=== PATIENT | female | born 1945 | race Caucasian/White ===

== ENCOUNTER 2016-04-22 01:50 | Emergency (ER) | payer OTHER ==
--- NOTE | 2016-04-22 07:23 | DIAGNOSTIC IMAGING REPORT ---
PROCEDURE: CT HEAD WITHOUT CONTRAST INDICATION: Occipital headache, initial encounter TECHNIQUE: Noncontrast axial images with sagittal and coronal reformations. COMPARISON: None. FINDINGS: Mild cortical atrophy. Ventricular system and brain parenchyma are normal. No evidence of acute intracranial process. Minor ethmoid sinus disease. Mastoids are clear. IMPRESSION: 1. Negative non-enhanced head CT. 2. Minor ethmoid sinus disease 3. Preliminary results submitted by Dr. Diallo, [facility] radiology.
--- NOTE | 2016-04-22 07:23 | DIAGNOSTIC IMAGING REPORT ---
PROCEDURE: CT HEAD WITHOUT CONTRAST INDICATION: Occipital headache, initial encounter TECHNIQUE: Noncontrast axial images with sagittal and coronal reformations. COMPARISON: None. FINDINGS: Mild cortical atrophy. Ventricular system and brain parenchyma are normal. No evidence of acute intracranial process. Minor ethmoid sinus disease. Mastoids are clear. IMPRESSION: 1. Negative non-enhanced head CT. 2. Minor ethmoid sinus disease 3. Preliminary results submitted by Dr. Diallo, [facility] radiology.
--- NOTE | 2016-04-22 10:32 | DIAGNOSTIC IMAGING REPORT ---
PROCEDURE: XR LUMBAR SPINAL PUNCTURE INDICATION: HEADACHE TECHNIQUE: C-arm fluoroscopy provided to Dr. Pichardo for lumbar spinal puncture Fluoroscopy time 1.5-minute 43 8.06 mGy). COMPARISON: None. FINDINGS: AP and lateral C-arm views. There is a needle tip overlying the posterior spinal canal at the L4 level IMPRESSION: 1. C-arm fluoroscopy for lumbar spinal puncture (performed by Dr. Pichardo
--- NOTE | 2016-04-22 11:35 | ED ORDER SUMMARY ---
..... Patient: KIRAN SMITH OrderSheet [facility] VisitID: [id number] [place] [address] 71y, F Registration Date/Time: 04/22/2016 ORDER SHEET Weight: 74.3 kg (stated) Allergies: Oxycodone GENERAL ORDERS: CT Head wo Cont Urgent (02:28 04/22/2016 Doug PADILLA) (Ack 2:30 AMcQuoid ER Tech1) (3:21 Mckenzie) CBC w Diff Urgent (06:23 04/22/2016 DBeyer R.N. verbal order read back to Doug PADILLA) (6:27 AMcQuoid ER Tech1) UA-Culture if indicated Urgent (06:23 04/22/2016 Mildred R.N. verbal order read back to Doug PADILLA) (6:27 AMcQuoid ER Tech1) Urine Drug Screen Urgent (07:58 04/22/2016 Doug PADILLA) (Ack 8:08 KHoerner) (8:08 KHoerner) Lumbar Spinal Puncture (No) Urgent (08:39 04/22/2016 Doug PADILLA) (Ack 8:41 KHoerner) (10:09 MWinterer R.N.) CSF, Cell Count Urgent (09:56 04/22/2016 Asael Koenig) (Ack 9:57 SUSANAoerner) (10:09 MWinterer R.N.) CSF, Culture Urgent (09:56 04/22/2016 Asael Koenig) (Ack 9:57 SUSANAoerner) (10:09 MWinterer R.N.) CSF, Glucose Urgent (09:56 04/22/2016 Asael Koenig) (Ack 9:57 SUSANAoerner) (10:09 MWinterer R.N.) CSF, Protein Urgent (09:56 04/22/2016 Asael Koenig) (Ack 9:58 SUSANAoerner) (10:09 MWinterer R.N.) MEDICATION ORDERS: IV FLUIDS: IV NS : initial bolus none -, then 250 mL/hr for 4h (NOW); Routine (02:27 04/22/2016 Doug PADILLA) (3:07 DBeyer R.N.) Dilaudid IV 0.5 mg (NOW) (02:28 04/22/2016 Doug PADILLA) (3:08 DBeyer R.N.) Ativan IV 0.5 mg (NOW) (02:28 04/22/2016 Doug PADILLA) (3:09 DBeyer R.N.) Zofran IV 4 mg (NOW) (02:28 04/22/2016 Doug PADILLA) (3:08 DBeyer R.N.) Dilaudid IV 0.5 mg (NOW) (04:49 04/22/2016 Doug PADILLA) (4:55 DBeyer R.N.) Zofran IV 4 mg (NOW) (05:13 04/22/2016 Doug PADILLA) (Ack 5:13 RCollier R.N.) (5:16 DBeyer R.N.) ORDER SHEET NOTES: [Electronically signed by Jessenia Ramirez R.N. (11:54 04/22/2016)] [Electronically signed by Jordon Bone Dr. (14:08 04/27/2016)] [Electronically locked/signed by Jessenia Ramirez R.N. (11:54 04/22/2016)]
--- NOTE | 2016-04-22 11:35 | ED CLINICAL REPORT ---
Clinical Report - Physicians/Mid Levels [facility] [address] [place] [address] 04/22/2016 1:56 Patient: KIRAN SMITH Time Seen: 02:25 Apr 22 2016. Arrived- By private vehicle. Historian- patient. HISTORY OF PRESENT ILLNESS Chief Complaint: HEADACHE. Worst JOHNSON she has ever had. Is still present. 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 Each JOHNSON lasts an hour or two. Seems to have come on with her cough and URI. HAs not been able to get tonight's JOHNSON to go away and now has vomiting. Onset during light activity. It is described as "pain". Located in the occipital region. At its maximum, severity described as moderate. When seen in the E.D., severity described as moderate. Modifying factors: (Cough makes it worse.). The patient has had nausea and vomiting. No preceding symptoms, blurred vision, photophobia, numbness or weakness. REVIEW OF SYSTEMS No fever, muscle aches, sinus pressure, ear pain or sore throat. No head injury, chest pain, difficulty breathing, cough or abdominal pain. No diarrhea, pain with urination, skin rash or enlarged lymph nodes. All systems otherwise negative, except as recorded above. PAST HISTORY Diabetes Mellitus. . ADDITIONAL SURGERIES: . Knee Surgery. Medications: MetFORMIN HCl Oral. Allergies: Oxycodone. ADDITIONAL NOTES The nursing notes have been reviewed. PHYSICAL EXAM Vital Signs: 04/22/2016 01:58 BP: 155/84. HR: 84. RR: 18. O2 saturation: 100%. Temp: 98.1 F. Appearance: Alert. Appears to be in pain. Patient in moderate distress. Eyes: Photophobia present. Pupils equal, round and reactive to light. ENT: Ears normal. Nose normal. Pharynx normal. Neck: Normal inspection. Neck supple. No meningeal signs. CVS: Normal heart rate and rhythm. Heart sounds normal. Pulses normal. Respiratory: No respiratory distress. Breath sounds normal. Abdomen: Soft and nontender. Back: Normal inspection. Skin: Skin warm. Normal skin color. No rash. Extremities: Extremities exhibit normal ROM. No lower extremity edema. Neuro: Oriented X 3. Alert. Mood/affect normal. Speech normal. Cranial nerves normal (as tested). No cerebellar findings. No motor deficit. No sensory deficit. Reflexes normal. LABS, X-RAYS, AND EKG CT Head: No acute disease. Laboratory Tests: UA-Culture if indicated: (AMANDA: 04/22/2016 04:42) ( [facility] 04/22/2016 06:39) Final results Test Result Flag Units (Reference) URINE COLOR YELLOW URINE APPEARANCE SLIGHTLY HAZY URINE GLUCOSE TRACE (NEGATIVE) URINE BILIRUBIN NEGATIVE (NEGATIVE) URINE KETONE 2+ (NEGATIVE) URINE SPECIFIC GRAVITY >= 1.030 (1.010-1.030) URINE PH 5.5 (5.0-8.0) URINE PROTEIN NEGATIVE (NEGATIVE) URINE UROBILINOGEN 0.2 EU/dL (0.2-1.0) URINE NITRITE NEGATIVE (NEGATIVE) URINE BLOOD TRACE-INTACT (NEGATIVE) URINE LEUK ESTERASE NEGATIVE (NEGATIVE) URINE RBC 0-1 rbc/hpf (0-1) URINE WBC RARE wbc/hpf (0-1) URINE EPITHELIAL CELLS RARE EPI/hpf (0-5) URINE BACTERIA NONE SEEN (NONE SEEN) URINE COMMENT CULT NOT INDICATED CALCIUM OXALATE CRYSTALS: 15-25/HPFURINE CULTURES ARE SET-UP BASED ON THE FOLLOWING CRITERIA:POSITIVE NITRITEPOSITIVE LEUKOCYTE ESTERASEGREATER THAN 10 WHITE BLOOD CELLSMODERATE (2+) OR GREATER BACTERIA CBC w Diff: (AMANDA: 04/22/2016 03:01) ( [facility] 04/22/2016 06:34) Final results Test Result Flag Units (Reference) WHITE BLOOD COUNT 10.2 K/uL (4.5-11.5) RED BLOOD COUNT 4.42 M/uL (4.00-5.20) HEMOGLOBIN 13.1 gm/dL (12.0-16.0) HEMATOCRIT 39.7 % (36.0-46.0) MEAN CELL VOLUME 90 fL (80-100) MEAN CORPUSCULAR HGB 30 pg (26-34) MEAN CORPUSCULAR HGB CONC 33 g/dL (31-37) RED CELL DISTRIBUTION WIDTH 12.4 % (11.6-14.8) PLATELET COUNT 406 H K/uL (150-400) NEUTROPHIL % 81.8 H % (50-75) LYMPH % 12.3 L % (25-40) MONO % 5.5 % (3-14) EOSINOPHIL % 0 % (0-4) BASOPHIL % 0.4 % (0-2) Urine Drug Screen: (AMANDA: 04/22/2016 04:42) ( [facility] 04/22/2016 09:36) Final results Test Result Flag Units (Reference) AMPHETAMINE/METHAMPHETAMINE NEGATIVE (NEGATIVE) BARBITURATE NEGATIVE (NEGATIVE) BENZODIAZEPINE NEGATIVE (NEGATIVE) CANNABINOID NEGATIVE (NEGATIVE) COCAINE NEGATIVE (NEGATIVE) ECSTASY NEGATIVE (NEGATIVE) METHADONE NEGATIVE (NEGATIVE) OPIATE POSITIVE H (NEGATIVE) The urine drug screen is a qualitative screening test fordrug overdose and abuse. All screen results should beconsidered as presumptive.Drugs screened for are as follows:BenzodiazepinesCocaineAmphetamines/MetamphetaminesTHC (Tetrahydrocannabinol)OpiatesBarbituratesEcstasyMethadonePositive results are unconfirmed. For confirmation, notifythe lab for the specimen to be sent to the reference lab.All confirmations must be performed by a differentmethodology.The ingestion of natural herbal and plant productscontaining Ephedra/Ephedra metabolites can produce in urineone or more substances capable of cross reacting withamphetamine/methamphetamine immunoassays. These testsprovide a preliminary result only. A more specificalternative chemical method must be used to obtain aconfirmed analytical result. CSF, Cell Count: (AMANDA: 04/22/2016 09:50) ( [facility] 04/22/2016 10:57) Final results Test Result Flag Units (Reference) CSF GLUCOSE 124 H mg/dL (40-75) CSF PROTEIN 56.2 H mg/dL (15-45) CSF TOTAL VOLUME 9.0 CC TUBE # 3 COLOR COLORLESS APPEARANCE CLEAR CSF WBC 4.0 WBC/mm3 (0-5) CSF RBC 25 H RBC/mm3 (0-5) CSF, Culture: (AMANDA: 04/22/2016 09:50) ( MsgRcvd 04/22/2016 11:01) IP Test Result Flag Units (Reference) GRAM STAIN, CSF DATE: 04/22/16 NO CELLS/NO BACTERIA: NO CELLS OR BACTERIA SEEN . PROGRESS AND PROCEDURES Lumbar Puncture: Lumbar puncture performed by ED physician. Risks, benefits and alternatives were discussed. Consent was obtained from patient. Sterile technique was used. Local lidocaine anesthesia was used. The area was cleansed with Betadine. Patient was in sitting position. A 22g needle was used. (3 attempts and could not get past bone to interspace. Pt with some scoliosis. Will need to get radiology assistance.). Course of Care: Attempt at LP failed and will need radiologist to help with procedure. Pt stable and no progression of symptoms. [address] Barrera who will be in to do the LP. He is coming from [place]. LP performed. Clear per IR. Labs ordered. he patient is a pleasant 71-year-old female presenting for evaluation of headache. I performed my own independent examination and history. Agree with the assessment and plan. At this point in time following up with the patient's lumbar puncture for evaluation of subarachnoid hemorrhage and is pending at this time. Unfortunately we're unable to obtain the lumbar puncture done in the emergency department by Dr. Pichardo. Patient was evaluated and neurovascularly intact. No focal neurological deficits noted on examination. Patient continues to be nontoxic and with improved pain control. Workup was noted to be unremarkable. Thelumbar puncture does not show any signs of subarachnoid hemorrhage. There is a small amount of blood noted on CSF however even case reportsshow patientto have at least 100red blood cells on spinal tap. Because of the low red blood cells, do not fill patient has subarachnoid hemorrhage. Fluid is also clear. No signs of xanthochromia. Patient was reevaluated and found to be significantly improved with her pain. I discussion with patient in regards to post lumbar puncture headache. Pain medication provided for home use. Discussed with patient her workup here in the emergency department including diagnosis, home care, follow-up, and return precautions. All questions have been answered. The patient expressed understanding of these instructions and was agreeable to them. Patient/family counseled. Disposition: Discharged. Condition: good. CLINICAL IMPRESSION Acute headache (posterior occipital). 04/22/2016 10:10 BP: 121/75. HR: 88. RR: 16. O2 saturation: 96%. Moderate nausea with vomiting (acute). Blood pressure normal. Oxygen saturation normal. INSTRUCTIONS Warnings: GENERAL WARNINGS: Return or contact your physician immediately if your condition worsens or changes unexpectedly, if not improving as expected, or if other problems arise. SPECIFICALLY, return if you develop fever, vomiting, numbness, weakness, difficulty thinking, visual disturbances, fainting or extreme fatigue. Your Current Medications: CONTINUE TAKING THE FOLLOWING MEDICATIONS: MetFORMIN HCl Oral. Prescription Medications: Zofran (orally disintegrating tablets) 4 mg: take 1 orally every 8 hours as needed for nausea and vomiting. Dispense ten (10). No refill. Substitution is permissible. [place] 5 mg / 325 mg tablets: take 1 orally every 6 hours as needed for pain. Dispense ten (10). No refill. Substitution is permissible. Follow-up: Return to the emergency department as needed. Follow up with your doctor in three days. Reason for referral: recheck today's concerns. Summary of care provided to patient via paper. Screening today revealed the patient's blood pressure to be in the normal range. The patient should follow up with a primary care provider for blood pressure management. Understanding of the discharge instructions verbalized by patient. (Electronically signed by Jordon Bone Dr. 04/27/2016 14:08)
--- NOTE | 2016-04-22 11:35 | ED NURSING NOTES ---
Clinical Report - Nurses [facility] [address] [place] [address] 04/22/2016 1:56 [id number] Triage time 01:58 Apr 22 2016. Acuity: LEVEL 4. Chief Complaint: COUGH. --02:00 Arnoldo Horton R.N. 01:58 04/22/16. BP: 155/84. HR: 84. RR: 18. O2 saturation: 100%. Temp: 98.1 F. Pain level now 08/18. --02:00 Arnoldo Horton R.N. Weight: 74.3 kg stated. Height/Length: 61 inches Per Patient. BMI: 31. --01:59 Arnoldo Horton R.N. Medications MetFORMIN HCl Oral. --01:59 Arnoldo Horton R.N. Allergies Oxycodone. --01:59 Arnoldo Horton R.N. History Arrived by private vehicle. ( Pt states she started zithromax since thursday and started prednisone yesterday. Pt has JOHNSON today). SOCIAL HX: Never smoker. No alcohol use or drug use. --02:00 Arnoldo Horton R.N. PROBLEMS: Diabetes Mellitus. --02:00 Arnoldo Horton R.N. ADDITIONAL SURGERIES: . Knee Surgery. --01:59 Arnoldo Horton R.N. Interventions ID band on patient. --02:00 Arnoldo Horton R.N. PHYSICAL ASSESSMENT GENERAL / NEURO / PSYCH: Alert. Oriented X 4. Appears in no acute distress. HEENT: Pupils equal, round and reactive to light. RESPIRATORY: The patient can speak in full sentences. Breath sounds within normal limits. CVS: Capillary refill less than 2 seconds. SKIN: Skin is warm and dry. --02:01 Arnoldo Horton R.N. NURSING PROGRESS NOTES Pulse oximeter placed on patient. Patient gowned. Call light placed in reach. Side rails up x 1. --02:01 Arnoldo Horton R.N. 02:43 04/22/2016 Two (2) unsuccessful IV access attempts including the right antecubital space and forearm. Applied bandage and manual pressure. --02:43 Christie Shah R.N. 03:04/22/2016 Site #1 started via IV in the left antecubital space with an 20g angiocath; four attempts. Blood drawn: rainbow set. Labeled in the presence of the patient and sent to the lab. --03: Arnoldo Horton R.N. 03:04/22/2016 Started bag #1 1000 mL IV Fluids IV NS (Saline); at 250 mL/hr over 4 hour(s) via site #1. Allergies verified and confirmed 5 rights. IV patency established. IV site checked: no pain, redness, or swelling. IV flushed thoroughly pre- and post-medication administration. Completed per protocol. --03: Arnoldo Horton R.N. 03:04/22/2016 Dilaudid (HYDROmorphone HCl PF) IVP 0.5 mg given over 2 minute(s) via site #1. Allergies verified, confirmed 5 rights and sedative warning given to the patient. IV patency established. IV site checked: no pain, redness, or swelling. IV flushed thoroughly pre- and post-medication administration. IVP given by RN. --03:08 Arnoldo Horton R.N. 03:04/22/2016 Zofran (Ondansetron HCl) IVP 4 mg given over 2 minute(s) via site #1. Allergies verified and confirmed 5 rights. IV patency established. IV site checked: no pain, redness, or swelling. IV flushed thoroughly pre- and post-medication administration. IVP given by RN. --03:08 Arnoldo Horton R.N. 03:04/22/2016 Ativan (LORazepam) IVP 0.5 mg given over 2 minute(s) via site #1. Allergies verified, confirmed 5 rights and sedative warning given to the patient. IV patency established. IV site checked: no pain, redness, or swelling. IV flushed thoroughly pre- and post-medication administration. IVP given by RN. --03:09 Arnoldo Horton R.N. 03:13. Patient transported to [place] by stretcher with tech. --03:16 McQuoid, Estrella, ER Tech1 03:23 04/22/16. O2 saturation: 97%. --03:23 Arnoldo Horton R.N. 04:13 04/22/16. BP: 126/73. HR: 76. O2 saturation: 99%. --04:14 Arnoldo Horton R.N. 04:55 04/22/2016 Dilaudid (HYDROmorphone HCl PF) IVP 0.5 mg given over 2 minute(s) via site #1. Allergies verified, confirmed 5 rights and sedative warning given to the patient. IV patency established. IV site checked: no pain, redness, or swelling. IV flushed thoroughly pre- and post-medication administration. IVP given by RN. --04:55 Arnoldo Horton R.N. 05:16 04/22/2016 Zofran (Ondansetron HCl) IVP 4 mg given over 2 minute(s) via site #1. Allergies verified and confirmed 5 rights. IV patency established. IV site checked: no pain, redness, or swelling. IV flushed thoroughly pre- and post-medication administration. IVP given by RN. --05:16 Arnoldo Horton R.N. 05:21. Oxygen administered by nasal cannula at 2 liters (due to multiple episodes of O2 reading in the low 80's, O2 improves to 100% with oxygen.). --06:05 Christie Shah R.N. 06:06 04/22/16. BP: 132/84. HR: 88. RR: 16. O2 saturation: 100%. --06:07 Arnoldo Horton R.N. ( LP unsuccessful). --06:07 Arnoldo Horton R.N. 06:56 04/22/2016 IV Fluids IV NS Discontinued: bag #1 infused. Total amount infused: 1000 mL. --06:56 Arnoldo Horton R.N. ( Pt taken off of NC 02 pt verbalized understanding of follow up care.). --06:57 Arnoldo Horton R.N. 06:56 04/22/16. BP: 124/64. HR: 89. RR: 16. O2 saturation: 94%. --06:57 Arnoldo Horton R.N. Care transferred and report received (BREEZY Mclaughlin). --07:09 Jessenia Ramirez R.N. 07:44 04/22/16. BP: 120/66. HR: 87. RR: 16. O2 saturation: 94% on room air. --07:45 Jessenia Ramirez R.N. 07:45 04/22/16. The patient is sleeping. --07:45 Jessenia Ramirez R.N. 08:38 04/22/16. BP: 118/59. HR: 81. RR: 18. O2 saturation: 95% on nasal cannula at 2 liters/minute. --08:39 Jessenia Ramirez R.N. Patient transported to radiology by stretcher with tech. (for LP). --09:15 Magi Daly R.N. ( walked cultures to lab.). --10:02 Nannette Mora, GLOYR Tech1 10:10 04/22/16. Patient returned from radiology by stretcher with tech. --10:10 Jessenia Ramirez R.N. 10:10 04/22/16. BP: 121/75. HR: 88. RR: 16. O2 saturation: 96% on room air. --10:11 Jessenia Ramirez R.N. DISPOSITION / DISCHARGE Departure time: 11:45 Apr 22 2016. Condition at departure: improved and stable. No learning barriers present. Discharge instructions provided and reviewed with the patient. Reviewed medication(s) side effects, precautions and dosing information. Prescription(s) given to the patient. Patient verbalized understanding. Written instructions provided in Serbian. The patient was discharged by the physician. She was discharged home and accompanied by spouse. She left the Emergency Department ambulatory and via private vehicle. Spouse driving. --11:53 Jessenia Ramirez R.N. 11:51 04/22/16. BP: 126/88. HR: 89. RR: 16. O2 saturation: 100% on room air. Temp: 98.1 F (oral). Pain level now: 05/19. --11:53 Jessenia Ramirez R.N. 11:43 04/22/2016 Site #1 removed upon discharge. Catheter intact. Manual pressure and bandage applied. --11:53 Jessenia Ramirez R.N. Locked/Released at 04/22/2016 11:54 by Jessenia Ramirez R.N.
--- NOTE | 2016-04-22 11:35 | ED ORDER SUMMARY ---
..... Patient: KIRAN SMITH OrderSheet [facility] VisitID: [id number] [place] [address] 71y, F Registration Date/Time: 04/22/2016 ORDER SHEET Weight: 74.3 kg (stated) Allergies: Oxycodone GENERAL ORDERS: CT Head wo Cont Urgent (02:28 04/22/2016 Doug PADILLA) (Ack 2:30 AMcQuoid ER Tech1) (3:21 Mckenzie) CBC w Diff Urgent (06:23 04/22/2016 DBeyer R.N. verbal order read back to Doug PADILLA) (6:27 AMcQuoid ER Tech1) UA-Culture if indicated Urgent (06:23 04/22/2016 Mildred R.N. verbal order read back to Doug PADILLA) (6:27 AMcQuoid ER Tech1) Urine Drug Screen Urgent (07:58 04/22/2016 Doug PADILLA) (Ack 8:08 KHoerner) (8:08 KHoerner) Lumbar Spinal Puncture (No) Urgent (08:39 04/22/2016 Doug PADILLA) (Ack 8:41 KHoerner) (10:09 MWinterer R.N.) CSF, Cell Count Urgent (09:56 04/22/2016 Asael Koenig) (Ack 9:57 SUSANAoerner) (10:09 MWinterer R.N.) CSF, Culture Urgent (09:56 04/22/2016 Asael Koenig) (Ack 9:57 SUSANAoerner) (10:09 MWinterer R.N.) CSF, Glucose Urgent (09:56 04/22/2016 Asael Koenig) (Ack 9:57 SUSANAoerner) (10:09 MWinterer R.N.) CSF, Protein Urgent (09:56 04/22/2016 Asael Koenig) (Ack 9:58 SUSANAoerner) (10:09 MWinterer R.N.) MEDICATION ORDERS: IV FLUIDS: IV NS : initial bolus none -, then 250 mL/hr for 4h (NOW); Routine (02:27 04/22/2016 Doug PADILLA) (3:07 DBeyer R.N.) Dilaudid IV 0.5 mg (NOW) (02:28 04/22/2016 Doug PADILLA) (3:08 DBeyer R.N.) Ativan IV 0.5 mg (NOW) (02:28 04/22/2016 Doug PADILLA) (3:09 DBeyer R.N.) Zofran IV 4 mg (NOW) (02:28 04/22/2016 Doug PADILLA) (3:08 DBeyer R.N.) Dilaudid IV 0.5 mg (NOW) (04:49 04/22/2016 Doug PADILLA) (4:55 DBeyer R.N.) Zofran IV 4 mg (NOW) (05:13 04/22/2016 Doug PADILLA) (Ack 5:13 RCollier R.N.) (5:16 DBeyer R.N.) ORDER SHEET NOTES: [Electronically signed by Jessenia Ramirez R.N. (11:54 04/22/2016)] [Electronically signed by Jordon Bone Dr. (14:08 04/27/2016)] [Electronically locked/signed by Jessenia Ramirez R.N. (11:54 04/22/2016)]
--- NOTE | 2016-04-27 14:08 | ED MAR SUMMARY ---
..... Medication Administration Record [facility] [address] [place] [address] Patient: KIRAN SMITH Visit ID: [id number] 71y, F Weight: 74.3 kg Height/Length: 61 in BMI: 31 ALLERGIES: Oxycodone Start 03:07 04/22/2016 Arnoldo Horton R.N., Stop 06:56 04/22/2016 Arnoldo Hortno R.N. Medication Administered: IV NS (SALINE), Dose: IV Fluids over 4 hour(s), Rate: 250 mL/hr, Dispensed: 1000 mL bag, Site: #1 left AC. Medication Ordered: IV NS : initial bolus none -, then 250 mL/hr for 4h (NOW); Routine. Given 03:08 04/22/2016 Arnoldo Horton R.N. Medication Administered: DILAUDID [IVP] (HYDROMORPHONE HCL PF), Dose: 0.5 mg IVP over 2 minute(s), Site: #1 left AC. Medication Ordered: Dilaudid IV 0.5 mg (NOW). Given 03:08 04/22/2016 Arnoldo Horton R.N. Medication Administered: ZOFRAN [IVP] (ONDANSETRON HCL), Dose: 4 mg IVP over 2 minute(s), Site: #1 left AC. Medication Ordered: Zofran IV 4 mg (NOW). Given 03:09 04/22/2016 Arnoldo Horton R.N. Medication Administered: ATIVAN [IVP] (LORAZEPAM), Dose: 0.5 mg IVP over 2 minute(s), Site: #1 left AC. Medication Ordered: Ativan IV 0.5 mg (NOW). Given 04:55 04/22/2016 Arnoldo Horton R.N. Medication Administered: DILAUDID [IVP] (HYDROMORPHONE HCL PF), Dose: 0.5 mg IVP over 2 minute(s), Site: #1 left AC. Medication Ordered: Dilaudid IV 0.5 mg (NOW). Given 05:16 04/22/2016 Arnoldo Horton R.N. Medication Administered: ZOFRAN [IVP] (ONDANSETRON HCL), Dose: 4 mg IVP over 2 minute(s), Site: #1 left AC. Medication Ordered: Zofran IV 4 mg (NOW).
--- NOTE | 2016-04-27 14:08 | ED DISCHARGE INSTRUCTIONS ---
Patient: KIRAN SMITH General Instructions [facility] VisitID: [id number] [place] [address] 71y, F Registration Date/Time: 04/22/2016 Acute headache (posterior occipital). 04/22/2016 10:10 BP: 121/75. HR: 88. RR: 16. O2 saturation: 96%. Moderate nausea with vomiting (acute). Blood pressure normal. Oxygen saturation normal. INSTRUCTIONS Warnings: GENERAL WARNINGS: Return or contact your physician immediately if your condition worsens or changes unexpectedly, if not improving as expected, or if other problems arise. SPECIFICALLY, return if you develop fever, vomiting, numbness, weakness, difficulty thinking, visual disturbances, fainting or extreme fatigue. Your Current Medications: CONTINUE TAKING THE FOLLOWING MEDICATIONS: MetFORMIN HCl Oral. Prescription Medications: Zofran (orally disintegrating tablets) 4 mg: take 1 orally every 8 hours as needed for nausea and vomiting. Dispense ten (10). No refill. Substitution is permissible. [place] 5 mg / 325 mg tablets: take 1 orally every 6 hours as needed for pain. Dispense ten (10). No refill. Substitution is permissible. Follow-up: Return to the emergency department as needed. Follow up with your doctor in three days. Reason for referral: recheck today's concerns. Summary of care provided to patient via paper. Screening today revealed the patient's blood pressure to be in the normal range. The patient should follow up with a primary care provider for blood pressure management. Understanding of the discharge instructions verbalized by patient. ADDITIONAL INFORMATION Headache [Unspecified] The cause of your headache today is not clear, but it does not appear to be the sign of any serious illness. Under stress, some people tense the muscles of their shoulder, neck and scalp without knowing it. If this condition lasts long enough, a TENSION HEADACHE can occur. A MIGRAINE HEADACHE is caused by changes in blood flow to the brain. A migraine attack may be triggered by emotional stress, hormone changes during the menstrual cycle, oral contraceptives, alcohol use, certain foods containing tyramine, eye strain, weather changes, missing meals, lack of sleep or oversleeping. Other causes of headache include a viral illness with high fever, head injury with concussion, sinus, ear or throat infection, dental pain and TMJ (jaw joint) pain. More serious but less common causes of headache include stroke, brain hemorrhage, brain tumor, meningitis and encephalitis. Home Care: If you were given pain medicine for this headache, do not drive yourself home. Arrange for a ride, instead. When you get home, try to sleep. You should feel much better when you wake up. Apply heat to the back of your neck to relieve neck muscle spasm. Migraine headaches may respond best to an ice pack on the forehead or at the base of the skull. If you are having nausea or vomiting, follow a light diet until your headache is relieved. If you have a migraine type headache, use sunglasses when in the daylight or around bright indoor lighting until symptoms improve. Bright glaring light can worsen this kind of headache. Follow Up with your doctor if the headache is not better within the next 24 hours. If you have frequent headaches you should discuss a treatment plan with your primary care doctor. By being aware of the earliest signs of headache, and starting treatment right away, you may be able to stop the pain yourself. Get Prompt Medical Attention if any of the following occur: Worsening of your head pain or no improvement within 24 hours Repeated vomiting (unable to keep liquids down) Fever of 100.4F (38C) or higher, or as directed by your healthcare provider Stiff neck Extreme drowsiness, confusion or fainting Dizziness, vertigo (dizziness with spinning sensation) Weakness of an arm or leg or one side of the face Difficulty with speech or vision Lumbar Puncture: Normal You have had a diagnostic lumbar puncture, also known as spinal tap. This test was normal, which means that you do not have any sign of infection in the spinal fluid and it will be safe for you to go home. Home Care: Once at home, rest as directed by your healthcare provider. It takes the body about six hours to replenish the small amount of spinal fluid that was removed today. You may develop a headache during this time. Lying down and drinking plenty of fluids may help relieve this headache. You may use acetaminophen (Tylenol) or ibuprofen (Motrin, Advil) to control pain, unless another medicine was prescribed. (NOTE: If you have chronic liver or kidney disease or ever had a stomach ulcer or GI bleeding, talk with your doctor before using these medicines. Aspirin should never be used in anyone under 18 years of age who is ill with a fever. It may cause severe liver damage.) Follow Up with your doctor as suggested by our staff, or sooner if you are not improving. Get Prompt Medical Attention if any of the following occur: Worsening head or neck pain Abnormal behavior, reduced alertness, difficulty in awakening Repeated vomiting Increasing temperature Swelling, pain, bruising or redness at the puncture site Ondansetron Oral disintegrating tablet What is this medicine? ONDANSETRON (on ALBA se marge) is used to treat nausea and vomiting caused by chemotherapy. It is also used to prevent or treat nausea and vomiting after surgery. How should I use this medicine? These tablets are made to dissolve in the mouth. Do not try to push the tablet through the foil backing. With dry hands, peel away the foil backing and gently remove the tablet. Place the tablet in the mouth and allow it to dissolve, then swallow. While you may take these tablets with water, it is not necessary to do so. Talk to your presentation specialist regarding the use of this medicine in children. Special care may be needed. What side effects may I notice from receiving this medicine? Side effects that you should report to your doctor or health health care manager as soon as possible: allergic reactions like skin rash, itching or hives, swelling of the face, lips, or tongue breathing problems dizziness fast or irregular heartbeat feeling faint or lightheaded, falls fever and chills swelling of the hands and feet tightness in the chest Side effects that usually do not require medical attention (report to your doctor or health health care manager if they continue or are bothersome): constipation or diarrhea headache What may interact with this medicine? Do not take this medicine with any of the following medications: -apomorphine -cisapride -dofetilide -dronedarone -pimozide -thioridazine -ziprasidone This medicine may also interact with the following medications: -carbamazepine -phenytoin -rifampicin -tramadol -other medicines that prolong the QT interval (cause an abnormal heart rhythm) What if I miss a dose? If you miss a dose, take it as soon as you can. If it is almost time for your next dose, take only that dose. Do not take double or extra doses. Where should I keep my medicine? Keep out of the reach of children. Store between 2 and 30 degrees C (36 and 86 degrees F). Throw away any unused medicine after the expiration date. What should I tell my health care provider before I take this medicine? They need to know if you have any of these conditions: heart disease history of irregular heartbeat liver disease low levels of magnesium or potassium in the blood an unusual or allergic reaction to ondansetron, granisetron, other medicines, foods, dyes, or preservatives or trying to get breast-feeding What should I watch for while using this medicine? Check with your doctor or health health care manager as soon as you can if you have any sign of an allergic reaction. Hydrocodone Bitartrate, Acetaminophen Oral tablet What is this medicine? ACETAMINOPHEN; HYDROCODONE (a set a PAIGE elizabeth fen; corrine droe KOE done) is a pain reliever. It is used to treat mild to moderate pain. How should I use this medicine? Take this medicine by mouth. Swallow it with a full glass of water. Follow the directions on the prescription label. If the medicine upsets your stomach, take the medicine with food or milk. Do not take more than you are told to take. Talk to your presentation specialist regarding the use of this medicine in children. This medicine is not approved for use in children. What side effects may I notice from receiving this medicine? Side effects that you should report to your doctor or health health care manager as soon as possible: allergic reactions like skin rash, itching or hives, swelling of the face, lips, or tongue breathing problems confusion feeling faint or lightheaded, falls stomach pain yellowing of the eyes or skin Side effects that usually do not require medical attention (report to your doctor or health health care manager if they continue or are bothersome): nausea, vomiting stomach upset What may interact with this medicine? alcohol antihistamines isoniazid medicines for depression, anxiety, or psychotic disturbances medicines for sleep muscle relaxants naltrexone narcotic medicines (opiates) for pain phenobarbital ritonavir tramadol What if I miss a dose? If you miss a dose, take it as soon as you can. If it is almost time for your next dose, take only that dose. Do not take double or extra doses. Where should I keep my medicine? Keep out of the reach of children. This medicine can be abused. Keep your medicine in a safe place to protect it from theft. Do not share this medicine with anyone. Selling or giving away this medicine is dangerous and against the law. Store at room temperature between 15 and 30 degrees C (59 and 86 degrees F). Protect from light. Keep container tightly closed. Throw away any unused medicine after the expiration date. Discard unused medicine and used packaging carefully. Pets and children can be harmed if they find used or lost packages. What should I tell my health care provider before I take this medicine? They need to know if you have any of these conditions: brain tumor Crohn's disease, inflammatory bowel disease, or ulcerative colitis drink more than 3 alcohol-containing drinks per day drug abuse or addiction head injury heart or circulation problems kidney disease or problems going to the bathroom liver disease lung disease, asthma, or breathing problems an unusual or allergic reaction to acetaminophen, hydrocodone, other opioid analgesics, other medicines, foods, dyes, or preservatives or trying to get breast-feeding What should I watch for while using this medicine? Tell your doctor or health health care manager if your pain does not go away, if it gets worse, or if you have new or a different type of pain. You may develop tolerance to the medicine. Tolerance means that you will need a higher dose of the medicine for pain relief. Tolerance is normal and is expected if you take the medicine for a long time. Do not suddenly stop taking your medicine because you may develop a severe reaction. Your body becomes used to the medicine. This does NOT mean you are addicted. Addiction is a behavior related to getting and using a drug for a non-medical reason. If you have pain, you have a medical reason to take pain medicine. Your doctor will tell you how much medicine to take. If your doctor wants you to stop the medicine, the dose will be slowly lowered over time to avoid any side effects. You may get drowsy or dizzy when you first start taking the medicine or change doses. Do not drive, use machinery, or do anything that may be dangerous until you know how the medicine affects you. Stand or sit up slowly. There are different types of narcotic medicines (opiates) for pain. If you take more than one type at the same time, you may have more side effects. Give your health care provider a list of all medicines you use. Your doctor will tell you how much medicine to take. Do not take more medicine than directed. Call emergency for help if you have problems breathing. The medicine will cause constipation. Try to have a bowel movement at least every 2 to 3 days. If you do not have a bowel movement for 3 days, call your doctor or health health care manager. Too much acetaminophen can be very dangerous. Do not take Tylenol (acetaminophen) or medicines that contain acetaminophen with this medicine. Many non-prescription medicines contain acetaminophen. Always read the labels carefully. You have been given the following additional information: Headache, Unspecified Lumbar Puncture, Normal Ondansetron Oral disintegrating tablet Hydrocodone Bitartrate, Acetaminophen Oral tablet (Electronically signed by Jordon Bone Dr. 04/27/2016 14:08)
--- NOTE | 2016-04-27 14:08 | ED MED RECONCILIATION SUMMARY ---
Patient: KIRAN SMITH Medication Reconciliation Report [facility] VisitID: [id number] [address] [place] [address] 71y, F Registration Date/Time: 04/22/2016 Weight: 74.3 kg Height/Length: 61 in. BMI: 31.0 ALLERGIES: Oxycodone The patient's Home Medications are listed below: CONTINUE TAKING THE FOLLOWING MEDICATIONS: MetFORMIN HCl Oral The source(s) of the original Home Medication information: Not obtained. The following Medications were given to the patient in the Emergency Department: IV NS IV Fluids bolus 0, then 250 mL/hr, administered: 04/22/2016 3:07:00 AM Dilaudid [IVP] IVP 0.5 mg, administered: 04/22/2016 3:08:00 AM Zofran [IVP] IVP 4 mg, administered: 04/22/2016 3:08:00 AM Ativan [IVP] IVP 0.5 mg, administered: 04/22/2016 3:09:00 AM Dilaudid [IVP] IVP 0.5 mg, administered: 04/22/2016 4:55:00 AM Zofran [IVP] IVP 4 mg, administered: 04/22/2016 5:16:00 AM The following Medications were prescribed to the patient: Zofran (orally disintegrating tablets) 4 mg: take 1 orally every 8 hours as needed for nausea and vomiting. Dispense ten (10). No refill. Substitution is permissible. -- Jordon Bone Dr. [place] 5 mg / 325 mg tablets: take 1 orally every 6 hours as needed for pain. Dispense ten (10). No refill. Substitution is permissible. -- Jordon Bone Dr.
--- NOTE | 2016-04-27 14:08 | ED MAR SUMMARY ---
..... Medication Administration Record [facility] [address] [place] [address] Patient: KIRAN SMITH Visit ID: [id number] 71y, F Weight: 74.3 kg Height/Length: 61 in BMI: 31 ALLERGIES: Oxycodone Start 03:07 04/22/2016 Arnoldo Horton R.N., Stop 06:56 04/22/2016 Arnoldo Horton R.N. Medication Administered: IV NS (SALINE), Dose: IV Fluids over 4 hour(s), Rate: 250 mL/hr, Dispensed: 1000 mL bag, Site: #1 left AC. Medication Ordered: IV NS : initial bolus none -, then 250 mL/hr for 4h (NOW); Routine. Given 03:08 04/22/2016 Arnoldo Horton R.N. Medication Administered: DILAUDID [IVP] (HYDROMORPHONE HCL PF), Dose: 0.5 mg IVP over 2 minute(s), Site: #1 left AC. Medication Ordered: Dilaudid IV 0.5 mg (NOW). Given 03:08 04/22/2016 Arnoldo Horton R.N. Medication Administered: ZOFRAN [IVP] (ONDANSETRON HCL), Dose: 4 mg IVP over 2 minute(s), Site: #1 left AC. Medication Ordered: Zofran IV 4 mg (NOW). Given 03:09 04/22/2016 Arnoldo Horton R.N. Medication Administered: ATIVAN [IVP] (LORAZEPAM), Dose: 0.5 mg IVP over 2 minute(s), Site: #1 left AC. Medication Ordered: Ativan IV 0.5 mg (NOW). Given 04:55 04/22/2016 Arnoldo Horton R.N. Medication Administered: DILAUDID [IVP] (HYDROMORPHONE HCL PF), Dose: 0.5 mg IVP over 2 minute(s), Site: #1 left AC. Medication Ordered: Dilaudid IV 0.5 mg (NOW). Given 05:16 04/22/2016 Arnoldo Horton R.N. Medication Administered: ZOFRAN [IVP] (ONDANSETRON HCL), Dose: 4 mg IVP over 2 minute(s), Site: #1 left AC. Medication Ordered: Zofran IV 4 mg (NOW).
--- NOTE | 2016-04-27 14:08 | ED MED RECONCILIATION SUMMARY ---
Patient: KIRAN SMITH Medication Reconciliation Report [facility] VisitID: [id number] [address] [place] [address] 71y, F Registration Date/Time: 04/22/2016 Weight: 74.3 kg Height/Length: 61 in. BMI: 31.0 ALLERGIES: Oxycodone The patient's Home Medications are listed below: CONTINUE TAKING THE FOLLOWING MEDICATIONS: MetFORMIN HCl Oral The source(s) of the original Home Medication information: Not obtained. The following Medications were given to the patient in the Emergency Department: IV NS IV Fluids bolus 0, then 250 mL/hr, administered: 04/22/2016 3:07:00 AM Dilaudid [IVP] IVP 0.5 mg, administered: 04/22/2016 3:08:00 AM Zofran [IVP] IVP 4 mg, administered: 04/22/2016 3:08:00 AM Ativan [IVP] IVP 0.5 mg, administered: 04/22/2016 3:09:00 AM Dilaudid [IVP] IVP 0.5 mg, administered: 04/22/2016 4:55:00 AM Zofran [IVP] IVP 4 mg, administered: 04/22/2016 5:16:00 AM The following Medications were prescribed to the patient: Zofran (orally disintegrating tablets) 4 mg: take 1 orally every 8 hours as needed for nausea and vomiting. Dispense ten (10). No refill. Substitution is permissible. -- Jordon Bone Dr. [place] 5 mg / 325 mg tablets: take 1 orally every 6 hours as needed for pain. Dispense ten (10). No refill. Substitution is permissible. -- Jordon Bone Dr.
== END 2016-04-22 11:45 | disposition home or self-care (01) ==
LOC: ED SRH 01:50
DX: R51 Headache (principal); R11.2 Nausea with vomiting, unspecified; H53.143 Visual discomfort, bilateral; E11.9 Type 2 diabetes mellitus without complications; Z79.84 Long term (current) use of oral hypoglycemic drugs; Z88.5 Allergy status to narcotic agent
CPT/HCPCS: 81344; 90004; 90134; 90309; 92070; 92653; 92760; 92761; 92762; 92763; 92764; 92765; 92766; 92767; 95030; 95059

== ENCOUNTER 2016-04-24 00:32 | Emergency (ER) | payer OTHER ==
--- NOTE | 2016-04-24 02:46 | ED NURSING NOTES ---
Clinical Report - Nurses [facility] [address] [place] [address] 04/24/2016 0:33 [id number] Triage time 00:35 Apr 24 2016. Acuity: LEVEL 3. Chief Complaint: HEADACHE. Alert. AMY COMA SCORE: Amy Coma Scale: 15- eyes open spontaneously (4); best verbal response- oriented x 4 (5); best motor response- obeys commands (6). --00:56 Nicholas Valenzuela R.N. 00:40 04/24/16. BP: 150/78. HR: 81. RR: 18. O2 saturation: 99% on room air. Temp: 98.5 F (oral). Pain level now: 11/18. Additional comments: JOHNSON pain. --00:56 Nicholas Valenzuela R.N. Weight: 74.3 kg stated. --00:51 Nicholas Valenzuela R.N.. Height/Length: 61 inches. BMI: 31. --03:08 Arnoldo Horton R.N. Medications MetFORMIN HCl Oral 500 mg x 2, daily. --00:47 Nicholas Valenzuela R.N. PredniSONE Oral 40 mg, daily (for 5 days). --00:48 Nichloas Valenzuela R.N. Antibiotic Azithromycin (?). --00:51 Nicholas Valenzuela R.N. Allergies Oxycodone. Definite Moderate(nausea) --00:47 Nicholas Valenzuela R.N. History Arrived by private vehicle. Historian: patient. Accompanied by family. Primary physician (Miriam Whitfield, [place], [place]). ( JOHNSON in the Occipital region described as 10/10 Pt seen here 3 days ago for same c/o and got better during the night, went home, then her JOHNSON returned tonight as she was getting ready to go to bed.). This started today about about 1 1/2 hours ago. Patient was last known well (about 2 hours ago). She has had nausea and vomiting. ( JOHNSON). 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 PAST MEDICAL HX: Headaches. Immunizations: up-to-date. The patient is post-menopausal. SOCIAL HX: Never smoker. No alcohol use or drug use. No recent travel. No infectious disease exposure. FALL RISK ASSESSMENT: Fall risk assessment completed. No fall risk identified. NUTRITIONAL RISK ASSESSMENT: The nutritional risk assessment revealed no deficiencies. FUNCTIONAL ASSESSMENT: Functional assessment: no impairments noted. LEARNING NEEDS ASSESSMENT: The learning needs assessment revealed no barriers. SKIN INTEGRITY ASSESSMENT: Skin integrity risk assessment completed. No skin integrity risk identified. --00:56 Nicholas Valenzuela R.N. PROBLEMS: Nausea. Diabetes Mellitus. --00:52 Nicholas Valenzuela R.N. ADDITIONAL SURGERIES: . Knee Surgery. --00:52 Nicholas Valenzuela R.N. Interventions ID and allergy band on patient. To treatment room. --00:56 Nicholas Valenzuela R.N. PHYSICAL ASSESSMENT Ambulatory to room. GENERAL / NEURO / PSYCH: Oriented X 4. Appears in pain. Speech within normal limits. HEENT: No facial asymmetry noted. RESPIRATORY: Respirations not labored. CVS: Capillary refill less than 2 seconds. GI / : Abdomen soft and nontender. SKIN: Skin is warm and dry. --00:57 Nicholas Valenzuela R.N. NURSING PROGRESS NOTES Patient gowned. Reassurance given. Lights dimmed. Patient identifiers checked. Call light placed in reach. Side rails up x 1. Bed placed in lowest position. Brakes of bed on. Patient ready for evaluation- chart flagged and ED physician notified. --00:58 Nicholas Valenzuela R.N. 01:08 04/24/2016 Zofran ODT (Ondansetron) PO Tablets 4 mg given. Allergies verified and confirmed 5 rights. --01:13 Nicholas Valenzuela R.N. 01:51 04/24/2016 Diazepam (Diazepam) IM 5 mg given. Given in the left deltoid. Allergies verified, confirmed 5 rights and sedative warning given to the patient. --01:51 Arnoldo Horton R.N. 01:51 04/24/16. HR: 75. O2 saturation: 100%. --01:51 Arnoldo Horton R.N. 02:15 04/24/2016 Toradol (Ketorolac Tromethamine) IM 60 mg given. Given in the right ventral gluteus. Allergies verified and confirmed 5 rights. --02:16 Christie Shah R.N. DISPOSITION / DISCHARGE Departure time: 254. No learning barriers present. Discharge instructions provided and reviewed with the patient. Reviewed medication(s) information. Patient verbalized understanding. Written instructions provided in Kazakh. The patient was discharged by the physician. She was discharged home and accompanied by family. She left the Emergency Department in a wheelchair and via private vehicle. Family member driving. --03:07 Arnoldo Horton R.N. 03:05 04/24/16. BP: 132/72. HR: 81. RR: 20. O2 saturation: 98%. Temp: 97.9 F. Pain level now 6/10. --03:07 Arnoldo Horton R.N. Locked/Released at 04/28/2016 3:48 by Nicholas Valenzuela R.N.
--- NOTE | 2016-04-24 02:46 | ED CLINICAL REPORT ---
Clinical Report - Physicians/Mid Levels [facility] [address] [place] [address] 04/24/2016 0:33 Patient: KIRAN SMITH Time Seen: 00:42; initial patient contact. Arrived- By private vehicle. Historian- patient. HISTORY OF PRESENT ILLNESS Chief Complaint: VOMITING. This started about 2 days ago and is still present. The patient has had nausea and vomiting. The illness is described as moderate. Similar symptoms previously: Several times. Recent medical care: The patient was seen recently at this facility in the emergency department. ( Nl head CT, LP, and labs. Dx of occipital H/A. H/A returned overnight, same as before.). REVIEW OF SYSTEMS No fever, muscle aches or dizziness. She has had a headache. All systems otherwise negative, except as recorded above. PAST HISTORY Nausea. Diabetes Mellitus. SURGERIES: . Knee Surgery. Medications: Antibiotic Azithromycin (?). PredniSONE Oral 40 mg, daily (for 5 days). MetFORMIN HCl Oral 500 mg x 2, daily. Allergies: Oxycodone. Definite Moderate(nausea). SOCIAL HISTORY Never smoker. No alcohol use or drug use. PHYSICAL EXAM Appearance: Alert. Oriented X3. Appears to be in pain. Eyes: Pupils equal, round and reactive to light. Eyes normal inspection. ENT: Pharynx normal. Neck: Mild acute decrease in ROM secondary to pain. Mild pain in the neck upon movement. Moderate muscle spasm of the right and left posterior neck. Neck supple. Moderate soft tissue tenderness in the right upper, mid and lower neck area and left upper, mid and lower neck area. No meningeal signs. No vertebral tenderness. CVS: Normal heart rate and rhythm. Heart sounds normal. Respiratory: No respiratory distress. Breath sounds normal. Skin: Normal skin color. No rash. Neuro: Oriented X 3. No motor deficit. PROGRESS AND PROCEDURES Course of Care: 02:45 04/24/16. Toradol 60mg IM given. Diazepam 5 mg IM given. Physical exam findings are improved. Symptoms much better. Disposition: Discharged home in good and improved condition. CLINICAL IMPRESSION Episodic tension-type headache resistant to treatment. Vomiting with nausea. INSTRUCTIONS Your Current Medications: STOP TAKING THE FOLLOWING MEDICATIONS: PredniSONE Oral : 40 mg daily, for 5 days. CONTINUE TAKING THE FOLLOWING MEDICATIONS: Antibiotic Azithromycin (?)*. MetFORMIN HCl Oral : 500 mg x 2 daily. Prescription Medications: Reglan 10 mg tablets: take 1 orally every 6 hours as needed for nausea or vomiting. Dispense twenty (20). No refills. Substitution is permissible. Baclofen 10 mg: take 1 orally every 8 hours. Dispense twenty (20). No refills. Follow-up: Follow up with your doctor today as scheduled. Screening today revealed the patient's blood pressure to be in the hypertensive range. The patient should follow up with a primary care provider for blood pressure management. (Electronically signed by Joseph Mcgill Dr. 04/24/2016 2:48)
--- NOTE | 2016-04-24 02:46 | ED ORDER SUMMARY ---
..... Patient: KIRAN SMITH OrderSheet [facility] VisitID: [id number] [address] [place] [address] 71y, F Registration Date/Time: 04/24/2016 ORDER SHEET Weight: 74.3 kg (stated) Allergies: Oxycodone GENERAL ORDERS: MEDICATION ORDERS: Zofran ODT PO 4 mg (NOW) (01:09 04/24/2016 Daniel Koenig) (1:13 Juana R.N.) Diazepam IM 5 mg (HIGH ALERT MEDICATION, NOW) (01:29 04/24/2016 Daniel Koenig) (Ack 1:43 Kevin R.N.) (1:51 Mildred R.N.) Toradol IM 60 mg (NOW) (02:08 04/24/2016 Daniel Koenig) (Ack 2:09 Kevin R.N.) (2:16 Kevin R.N.) IV FLUIDS: ORDER SHEET NOTES: [Electronically signed by Joseph Mcgill Dr. (02:48 04/24/2016)] [Electronically signed by Nicholas Valenzuela R.N. (03:48 04/28/2016)] [Electronically locked/signed by Nicholas Valenzuela R.N. (03:48 04/28/2016)]
--- NOTE | 2016-04-24 02:46 | ED NURSING NOTES ---
Clinical Report - Nurses [facility] [address] [place] [address] 04/24/2016 0:33 [id number] Triage time 00:35 Apr 24 2016. Acuity: LEVEL 3. Chief Complaint: HEADACHE. Alert. AMY COMA SCORE: Amy Coma Scale: 15- eyes open spontaneously (4); best verbal response- oriented x 4 (5); best motor response- obeys commands (6). --00:56 Nicholas Valenzuela R.N. 00:40 04/24/16. BP: 150/78. HR: 81. RR: 18. O2 saturation: 99% on room air. Temp: 98.5 F (oral). Pain level now: 11/18. Additional comments: JOHNSON pain. --00:56 Nicholas Valenzuela R.N. Weight: 74.3 kg stated. --00:51 Nicholas Valenzuela R.N.. Height/Length: 61 inches. BMI: 31. --03:08 Arnoldo Horton R.N. Medications MetFORMIN HCl Oral 500 mg x 2, daily. --00:47 Nicholas Valenzuela R.N. PredniSONE Oral 40 mg, daily (for 5 days). --00:48 Nicholas Valenzuela R.N. Antibiotic Azithromycin (?). --00:51 Nicholas Valenzuela R.N. Allergies Oxycodone. Definite Moderate(nausea) --00:47 Nicholas Valenzuela R.N. History Arrived by private vehicle. Historian: patient. Accompanied by family. Primary physician (Miriam Whitfield, [place], [place]). ( JOHNSON in the Occipital region described as 10/10 Pt seen here 3 days ago for same c/o and got better during the night, went home, then her JOHNSON returned tonight as she was getting ready to go to bed.). This started today about about 1 1/2 hours ago. Patient was last known well (about 2 hours ago). She has had nausea and vomiting. ( JOHNSON). 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 PAST MEDICAL HX: Headaches. Immunizations: up-to-date. The patient is post-menopausal. SOCIAL HX: Never smoker. No alcohol use or drug use. No recent travel. No infectious disease exposure. FALL RISK ASSESSMENT: Fall risk assessment completed. No fall risk identified. NUTRITIONAL RISK ASSESSMENT: The nutritional risk assessment revealed no deficiencies. FUNCTIONAL ASSESSMENT: Functional assessment: no impairments noted. LEARNING NEEDS ASSESSMENT: The learning needs assessment revealed no barriers. SKIN INTEGRITY ASSESSMENT: Skin integrity risk assessment completed. No skin integrity risk identified. --00:56 Nicholas Valenzuela R.N. PROBLEMS: Nausea. Diabetes Mellitus. --00:52 Nicholas Valenzuela R.N. ADDITIONAL SURGERIES: . Knee Surgery. --00:52 Nicholas Valenzuela R.N. Interventions ID and allergy band on patient. To treatment room. --00:56 Nicholas Valenzuela R.N. PHYSICAL ASSESSMENT Ambulatory to room. GENERAL / NEURO / PSYCH: Oriented X 4. Appears in pain. Speech within normal limits. HEENT: No facial asymmetry noted. RESPIRATORY: Respirations not labored. CVS: Capillary refill less than 2 seconds. GI / : Abdomen soft and nontender. SKIN: Skin is warm and dry. --00:57 Nicholas Valenzuela R.N. NURSING PROGRESS NOTES Patient gowned. Reassurance given. Lights dimmed. Patient identifiers checked. Call light placed in reach. Side rails up x 1. Bed placed in lowest position. Brakes of bed on. Patient ready for evaluation- chart flagged and ED physician notified. --00:58 Nicholas Valenzuela R.N. 01:08 04/24/2016 Zofran ODT (Ondansetron) PO Tablets 4 mg given. Allergies verified and confirmed 5 rights. --01:13 Nicholas Valenzuela R.N. 01:51 04/24/2016 Diazepam (Diazepam) IM 5 mg given. Given in the left deltoid. Allergies verified, confirmed 5 rights and sedative warning given to the patient. --01:51 Arnoldo Horton R.N. 01:51 04/24/16. HR: 75. O2 saturation: 100%. --01:51 Arnoldo Horton R.N. 02:15 04/24/2016 Toradol (Ketorolac Tromethamine) IM 60 mg given. Given in the right ventral gluteus. Allergies verified and confirmed 5 rights. --02:16 Christie Shah R.N. DISPOSITION / DISCHARGE Departure time: 254. No learning barriers present. Discharge instructions provided and reviewed with the patient. Reviewed medication(s) information. Patient verbalized understanding. Written instructions provided in Yoruba. The patient was discharged by the physician. She was discharged home and accompanied by family. She left the Emergency Department in a wheelchair and via private vehicle. Family member driving. --03:07 Arnoldo Horton R.N. 03:05 04/24/16. BP: 132/72. HR: 81. RR: 20. O2 saturation: 98%. Temp: 97.9 F. Pain level now 6/10. --03:07 Arnoldo Horton R.N. Locked/Released at 04/28/2016 3:48 by Nicholas Valenzuela R.N.
--- NOTE | 2016-04-24 02:46 | ED CLINICAL REPORT ---
Clinical Report - Physicians/Mid Levels [facility] [address] [place] [address] 04/24/2016 0:33 Patient: KIRAN SMITH Time Seen: 00:42; initial patient contact. Arrived- By private vehicle. Historian- patient. HISTORY OF PRESENT ILLNESS Chief Complaint: VOMITING. This started about 2 days ago and is still present. The patient has had nausea and vomiting. The illness is described as moderate. Similar symptoms previously: Several times. Recent medical care: The patient was seen recently at this facility in the emergency department. ( Nl head CT, LP, and labs. Dx of occipital H/A. H/A returned overnight, same as before.). REVIEW OF SYSTEMS No fever, muscle aches or dizziness. She has had a headache. All systems otherwise negative, except as recorded above. PAST HISTORY Nausea. Diabetes Mellitus. SURGERIES: . Knee Surgery. Medications: Antibiotic Azithromycin (?). PredniSONE Oral 40 mg, daily (for 5 days). MetFORMIN HCl Oral 500 mg x 2, daily. Allergies: Oxycodone. Definite Moderate(nausea). SOCIAL HISTORY Never smoker. No alcohol use or drug use. PHYSICAL EXAM Appearance: Alert. Oriented X3. Appears to be in pain. Eyes: Pupils equal, round and reactive to light. Eyes normal inspection. ENT: Pharynx normal. Neck: Mild acute decrease in ROM secondary to pain. Mild pain in the neck upon movement. Moderate muscle spasm of the right and left posterior neck. Neck supple. Moderate soft tissue tenderness in the right upper, mid and lower neck area and left upper, mid and lower neck area. No meningeal signs. No vertebral tenderness. CVS: Normal heart rate and rhythm. Heart sounds normal. Respiratory: No respiratory distress. Breath sounds normal. Skin: Normal skin color. No rash. Neuro: Oriented X 3. No motor deficit. PROGRESS AND PROCEDURES Course of Care: 02:45 04/24/16. Toradol 60mg IM given. Diazepam 5 mg IM given. Physical exam findings are improved. Symptoms much better. Disposition: Discharged home in good and improved condition. CLINICAL IMPRESSION Episodic tension-type headache resistant to treatment. Vomiting with nausea. INSTRUCTIONS Your Current Medications: STOP TAKING THE FOLLOWING MEDICATIONS: PredniSONE Oral : 40 mg daily, for 5 days. CONTINUE TAKING THE FOLLOWING MEDICATIONS: Antibiotic Azithromycin (?)*. MetFORMIN HCl Oral : 500 mg x 2 daily. Prescription Medications: Reglan 10 mg tablets: take 1 orally every 6 hours as needed for nausea or vomiting. Dispense twenty (20). No refills. Substitution is permissible. Baclofen 10 mg: take 1 orally every 8 hours. Dispense twenty (20). No refills. Follow-up: Follow up with your doctor today as scheduled. Screening today revealed the patient's blood pressure to be in the hypertensive range. The patient should follow up with a primary care provider for blood pressure management. (Electronically signed by Joseph Mcgill Dr. 04/24/2016 2:48)
--- NOTE | 2016-04-24 02:46 | ED ORDER SUMMARY ---
..... Patient: KIRAN SMITH OrderSheet [facility] VisitID: [id number] [address] [place] [address] 71y, F Registration Date/Time: 04/24/2016 ORDER SHEET Weight: 74.3 kg (stated) Allergies: Oxycodone GENERAL ORDERS: MEDICATION ORDERS: Zofran ODT PO 4 mg (NOW) (01:09 04/24/2016 Daniel Koenig) (1:13 Juana R.N.) Diazepam IM 5 mg (HIGH ALERT MEDICATION, NOW) (01:29 04/24/2016 Daniel Koenig) (Ack 1:43 Kevin R.N.) (1:51 Mildred R.N.) Toradol IM 60 mg (NOW) (02:08 04/24/2016 Daniel Koenig) (Ack 2:09 Kevin R.N.) (2:16 Kevin R.N.) IV FLUIDS: ORDER SHEET NOTES: [Electronically signed by Joseph Mcgill Dr. (02:48 04/24/2016)] [Electronically signed by Nicholas Valenzuela R.N. (03:48 04/28/2016)] [Electronically locked/signed by Nicholas Valenzuela R.N. (03:48 04/28/2016)]
--- NOTE | 2016-04-28 03:48 | ED MAR SUMMARY ---
..... Medication Administration Record [facility] [address] [place] [address] Patient: KIRAN SMITH Visit ID: [id number] 71y, F Weight: 74.3 kg Height/Length: 61 in BMI: 31 ALLERGIES: Oxycodone Given 01:08 04/24/2016 Nicholas Valenzuela, RPoppyN. Medication Administered: ZOFRAN ODT [PO] (ONDANSETRON), Dose: 4 mg Tablets PO. Medication Ordered: Zofran ODT PO 4 mg (NOW). Given 01:51 04/24/2016 Arnoldo Horton R.N. Medication Administered: DIAZEPAM [IM] (DIAZEPAM), Dose: 5 mg IM. Medication Ordered: Diazepam IM 5 mg (HIGH ALERT MEDICATION, NOW). Given 02:15 04/24/2016 Christie Shah R.N. Medication Administered: TORADOL [IM] (KETOROLAC TROMETHAMINE), Dose: 60 mg IM. Medication Ordered: Toradol IM 60 mg (NOW).
--- NOTE | 2016-04-28 03:48 | ED MED RECONCILIATION SUMMARY ---
Patient: KIRAN SMITH Medication Reconciliation Report [facility] VisitID: [id number] [address] [place] [address] 71y, F Registration Date/Time: 04/24/2016 Weight: 74.3 kg Height/Length: 61 in. BMI: 31.0 ALLERGIES: Oxycodone The patient's Home Medications are listed below: STOP TAKING THE FOLLOWING MEDICATIONS: PredniSONE Oral 40 mg, daily, for 5 days CONTINUE TAKING THE FOLLOWING MEDICATIONS: Antibiotic Azithromycin (?) MetFORMIN HCl Oral 500 mg x 2, daily The source(s) of the original Home Medication information: Not obtained. The following Medications were given to the patient in the Emergency Department: Zofran ODT [PO] PO 4 mg, administered: 04/24/2016 1:08:00 AM Diazepam [IM] IM 5 mg, administered: 04/24/2016 1:51:00 AM Toradol [IM] IM 60 mg, administered: 04/24/2016 2:15:00 AM The following Medications were prescribed to the patient: Reglan 10 mg tablets: take 1 orally every 6 hours as needed for nausea or vomiting. Dispense twenty (20). No refills. Substitution is permissible. -- Joseph Mcgill Dr. Baclofen 10 mg: take 1 orally every 8 hours. Dispense twenty (20). No refills. -- Joseph Mcgill Dr.
--- NOTE | 2016-04-28 03:48 | ED MAR SUMMARY ---
..... Medication Administration Record [facility] [address] [place] [address] Patient: KIRAN SMITH Visit ID: [id number] 71y, F Weight: 74.3 kg Height/Length: 61 in BMI: 31 ALLERGIES: Oxycodone Given 01:08 04/24/2016 Nicholas Valenzuela, RPoppyN. Medication Administered: ZOFRAN ODT [PO] (ONDANSETRON), Dose: 4 mg Tablets PO. Medication Ordered: Zofran ODT PO 4 mg (NOW). Given 01:51 04/24/2016 Arnoldo Horton R.N. Medication Administered: DIAZEPAM [IM] (DIAZEPAM), Dose: 5 mg IM. Medication Ordered: Diazepam IM 5 mg (HIGH ALERT MEDICATION, NOW). Given 02:15 04/24/2016 Christie Shah R.N. Medication Administered: TORADOL [IM] (KETOROLAC TROMETHAMINE), Dose: 60 mg IM. Medication Ordered: Toradol IM 60 mg (NOW).
--- NOTE | 2016-04-28 03:48 | ED MED RECONCILIATION SUMMARY ---
Patient: KIRAN SMITH Medication Reconciliation Report [facility] VisitID: [id number] [address] [place] [address] 71y, F Registration Date/Time: 04/24/2016 Weight: 74.3 kg Height/Length: 61 in. BMI: 31.0 ALLERGIES: Oxycodone The patient's Home Medications are listed below: STOP TAKING THE FOLLOWING MEDICATIONS: PredniSONE Oral 40 mg, daily, for 5 days CONTINUE TAKING THE FOLLOWING MEDICATIONS: Antibiotic Azithromycin (?) MetFORMIN HCl Oral 500 mg x 2, daily The source(s) of the original Home Medication information: Not obtained. The following Medications were given to the patient in the Emergency Department: Zofran ODT [PO] PO 4 mg, administered: 04/24/2016 1:08:00 AM Diazepam [IM] IM 5 mg, administered: 04/24/2016 1:51:00 AM Toradol [IM] IM 60 mg, administered: 04/24/2016 2:15:00 AM The following Medications were prescribed to the patient: Reglan 10 mg tablets: take 1 orally every 6 hours as needed for nausea or vomiting. Dispense twenty (20). No refills. Substitution is permissible. -- Joseph Mcgill Dr. Baclofen 10 mg: take 1 orally every 8 hours. Dispense twenty (20). No refills. -- Joseph Mcgill Dr.
--- NOTE | 2016-04-28 03:48 | ED DISCHARGE INSTRUCTIONS ---
Patient: KIRAN SMITH General Instructions [facility] VisitID: [id number] [place] [address] 71y, F Registration Date/Time: 04/24/2016 Episodic tension-type headache resistant to treatment. Vomiting with nausea. INSTRUCTIONS Your Current Medications: STOP TAKING THE FOLLOWING MEDICATIONS: PredniSONE Oral : 40 mg daily, for 5 days. CONTINUE TAKING THE FOLLOWING MEDICATIONS: Antibiotic Azithromycin (?)*. MetFORMIN HCl Oral : 500 mg x 2 daily. Prescription Medications: Reglan 10 mg tablets: take 1 orally every 6 hours as needed for nausea or vomiting. Dispense twenty (20). No refills. Substitution is permissible. Baclofen 10 mg: take 1 orally every 8 hours. Dispense twenty (20). No refills. Follow-up: Follow up with your doctor today as scheduled. Screening today revealed the patient's blood pressure to be in the hypertensive range. The patient should follow up with a primary care provider for blood pressure management. ADDITIONAL INFORMATION Tension Headache Muscle Tension Headache (also called "stress headache") is a very common cause of head pain. Under stress, some people tense the muscles of their shoulder, neck and scalp without knowing it. If this lasts long enough, a headache can occur. These headaches can be very painful and last for hours or even days. Home Care: If you were given pain medicine for this headache, do not drive yourself home. Arrange for a ride, instead. When you get home, try to sleep. You should feel much better when you wake up. Heat to the back of your neck may relieve neck spasm. Drink only clear liquids or eat a very light diet to avoid nausea/vomiting until symptoms improve. Preventing Future Headaches Identify the sources of stress in your life. These may not be obvious! Learn new ways to handle your stress, such as regular exercise, biofeedback, self-hypnosis and meditation. For more information about this, consult your doctor or go to a local bookstore and review the many books and tapes on this subject. At the first sign of a tension headache, take time out if possible. Remove yourself from the stressful situation, find a quiet comfortable place to sit or lie down and let yourself relax. Heat and deep massage of the tight areas in the neck and shoulders may help reduce muscle spasm. Medicine, such as ibuprofen (Advil or Motrin) or a prescribed muscle relaxant may be helpful at this point. Follow Up with your doctor if the headache is not better within the next 24 hours. If you have frequent headaches you should discuss a treatment plan with your primary care doctor. Ask if you can have medicine to take at home the next time you get a bad headache. This may avoid the need for a visit to the emergency department in the future. Poorly controlled chronic headaches may require a referral to a neurologist (headache specialist). Get Prompt Medical Attention if any of the following occur: Worsening of your head pain or no improvement within 24 hours Repeated vomiting (unable to keep liquids down) Fever of 100.4F (38C) or higher, or as directed by your healthcare provider Stiff neck Extreme drowsiness, confusion or fainting Dizziness, vertigo (dizziness with spinning sensation) Weakness of an arm or leg or one side of the face Difficulty with speech or vision Metoclopramide Hydrochloride Oral tablet What is this medicine? METOCLOPRAMIDE (met oh kloe PRA mide) is used to treat the symptoms of gastroesophageal reflux disease (GERD) like heartburn. It is also used to treat people with slow emptying of the stomach and intestinal tract. How should I use this medicine? Take this medicine by mouth with a glass of water. Follow the directions on the prescription label. Take this medicine on an empty stomach, about 30 minutes before eating. Take your doses at regular intervals. Do not take your medicine more often than directed. Do not stop taking except on the advice of your doctor or health day care aide. A special MedGuide will be given to you by the pharmacist with each prescription and refill. Be sure to read this information carefully each time. Talk to your production zone leader regarding the use of this medicine in children. Special care may be needed. What side effects may I notice from receiving this medicine? Side effects that you should report to your doctor or health day care aide as soon as possible: allergic reactions like skin rash, itching or hives, swelling of the face, lips, or tongue abnormal production of milk in females breast enlargement in both males and females change in the way you walk difficulty moving, speaking or swallowing drooling, lip smacking, or rapid movements of the tongue excessive sweating fever involuntary or uncontrollable movements of the eyes, head, arms and legs irregular heartbeat or palpitations muscle twitches and spasms unusually weak or tired Side effects that usually do not require medical attention (report to your doctor or health day care aide if they continue or are bothersome): change in sex drive or performance depressed mood diarrhea difficulty sleeping headache menstrual changes restless or nervous What may interact with this medicine? acetaminophen cyclosporine digoxin medicines for blood pressure medicines for diabetes, including insulin medicines for hay fever and other allergies medicines for depression, especially an Monoamine Oxidase Inhibitor (MAOI) medicines for Parkinson's disease, like levodopa medicines for sleep or for pain tetracycline What if I miss a dose? If you miss a dose, take it as soon as you can. If it is almost time for your next dose, take only that dose. Do not take double or extra doses. Where should I keep my medicine? Keep out of the reach of children. Store at room temperature between 20 and 25 degrees C (68 and 77 degrees F). Protect from light. Keep container tightly closed. Throw away any unused medicine after the expiration date. What should I tell my health care provider before I take this medicine? They need to know if you have any of these conditions: breast cancer depression diabetes heart failure high blood pressure kidney disease liver disease Parkinson's disease or a movement disorder pheochromocytoma seizures stomach obstruction, bleeding, or perforation an unusual or allergic reaction to metoclopramide, procainamide, sulfites, other medicines, foods, dyes, or preservatives or trying to get breast-feeding What should I watch for while using this medicine? It may take a few weeks for your stomach condition to start to get better. However, do not take this medicine for longer than 12 weeks. The longer you take this medicine, and the more you take it, the greater your chances are of developing serious side effects. If you are an elderly patient, a female patient, or you have diabetes, you may be at an increased risk for side effects from this medicine. Contact your doctor immediately if you start having movements you cannot control such as lip smacking, rapid movements of the tongue, involuntary or uncontrollable movements of the eyes, head, arms and legs, or muscle twitches and spasms. Patients and their families should watch out for worsening depression or thoughts of suicide. Also watch out for any sudden or severe changes in feelings such as feeling anxious, agitated, panicky, irritable, hostile, aggressive, impulsive, severely restless, overly excited and hyperactive, or not being able to sleep. If this happens, especially at the beginning of treatment or after a change in dose, call your doctor. Do not treat yourself for high fever. Ask your doctor or health day care aide for advice. You may get drowsy or dizzy. Do not drive, use machinery, or do anything that needs mental alertness until you know how this drug affects you. Do not stand or sit up quickly, especially if you are an older patient. This reduces the risk of dizzy or fainting spells. Alcohol can make you more drowsy and dizzy. Avoid alcoholic drinks. You have been given the following additional information: Headache, Tension Metoclopramide Hydrochloride Oral tablet (Electronically signed by Joseph Mcgill Dr. 04/24/2016 2:48)
== END 2016-04-24 02:55 ==
LOC: ED SRH 00:32
DX: G44.211 Episodic tension-type headache, intractable (principal); R11.2 Nausea with vomiting, unspecified; E11.9 Type 2 diabetes mellitus without complications; Z79.52 Long term (current) use of systemic steroids; Z79.84 Long term (current) use of oral hypoglycemic drugs; Z88.5 Allergy status to narcotic agent